=== PATIENT | female | born 1960 | race African-American/Black ===

== ENCOUNTER 2022-02-07 17:01 | Inpatient (IN) | payer OTHER ==
[2022-02-08] MEDS ORDERED: PREDNISONE 10 MG PO SCH (14:30)
[2022-02-08] MEDS: Gabapentin 300 MG CAP PO SCH ×2 (16:00→21:53)
[2022-02-08] MEDS ORDERED: Dextrose 50% Abboject 50 ML SYRINGE SLOW IVP PRN (16:22)
[2022-02-08] MEDS ORDERED: HumaLOG 300 UNITS/3 ML VIAL SC PRN (16:30)
[2022-02-08] MEDS ORDERED: Dextrose 5% in Water 1,000 ML IV PRN (16:30)
[2022-02-08] MEDS: Carvedilol 6.25 MG TAB PO SCH (17:34)
[2022-02-08] MEDS: Oxybutynin 5 MG TAB PO SCH (21:54)
[2022-02-08] MEDS: Fluticasone Propionate Nasal Spray 16 gm Bottle NASAL SCH (21:54)
[2022-02-08] MEDS: Famotidine 20 MG TAB PO SCH (21:55)
[2022-02-08] MEDS: Apixaban 2.5 MG TAB PO SCH (21:55)
[2022-02-09 05:52] LABS: Anion Gap 18 mmol/L (10-20); BUN (Urea Nitrogen) 90 mg/dL (9.8-20.1); Calc. Creatinine Clearance 53 mL/min (70-130); Calcium 9.6 mg/dL (7.8-10.44); Carbon Dioxide 21 mmol/L (23-31); Chloride 110 mmol/L (98-107); Estimated GFR 20; Glucose 127 mg/dL (80-115); Potassium 4.8 mmol/L (3.5-5.1); Sodium 144 mmol/L (136-145)
[2022-02-09 06:20] LABS: Hemoglobin 12.8 g/dL (12.0-16.0); Large Platelets SLIGHT; Lymphocytes 3 % (21-51); MDiff Complete? YES; Macrocytosis SLIGHT = 6-15 cells (100X) (0-5/hpf); Mean Platelet Volume 12.1 fL (7.4-10.4); Monocytes 3 % (0-10); Neutrophil 94 % (42-75); Ovalocytes SLIGHT = 2-5 cells (100X) (0-1/hpf); Platelet Count 103 thou/uL (130-400); Platelet Morphology Comment Appears Decreased; RBC Distribution Width 16.5 % (11.5-14.5); Red Blood Cell (RBC) Count 4.14 mill/uL (4.20-5.40); Tear Drops SLIGHT = 2-5 cells (100X) (0-1/hpf); White Blood Cell (WBC) Count 11.9 thou/uL (4.8-10.8)
[2022-02-09] MEDS: Furosemide 40 MG TAB PO SCH (08:15)
[2022-02-09] MEDS: Escitalopram Oxalate 10 mg Tablet PO SCH (08:15)
[2022-02-09] MEDS: Apixaban 2.5 MG TAB PO SCH ×2 (08:16→20:39)
[2022-02-09] MEDS: Carvedilol 6.25 MG TAB PO SCH ×2 (08:16→17:03)
[2022-02-09] MEDS: predniSONE 20 MG TAB PO SCH (08:16)
[2022-02-09] MEDS: NIFEdipine XL 30 MG TAB PO SCH (08:16)
[2022-02-09] MEDS: Loratadine 10 MG TAB PO SCH (08:16)
[2022-02-09] MEDS: Gabapentin 300 MG CAP PO SCH ×3 (08:17→20:38)
[2022-02-09] MEDS: Fluticasone Propionate Nasal Spray 16 gm Bottle NASAL SCH ×2 (08:18→20:38)
[2022-02-09] MEDS: Oxybutynin 5 MG TAB PO SCH (20:39)
[2022-02-09] MEDS: Famotidine 20 MG TAB PO SCH (20:39)
[2022-02-10] MEDS: Carvedilol 6.25 MG TAB PO SCH (08:18)
[2022-02-10] MEDS: NIFEdipine XL 30 MG TAB PO SCH (08:19)
[2022-02-10] MEDS: Escitalopram Oxalate 10 mg Tablet PO SCH (08:19)
[2022-02-10] MEDS: predniSONE 20 MG TAB PO SCH (08:19)
[2022-02-10] MEDS: Gabapentin 300 MG CAP PO SCH ×3 (08:19→21:28)
[2022-02-10] MEDS: Loratadine 10 MG TAB PO SCH (08:20)
[2022-02-10] MEDS: Apixaban 2.5 MG TAB PO SCH ×2 (08:20→21:26)
[2022-02-10] MEDS: Fluticasone Propionate Nasal Spray 16 gm Bottle NASAL SCH ×2 (08:20→21:26)
[2022-02-10] MEDS: Furosemide 40 MG TAB PO SCH (08:20)
[2022-02-10] MEDS: Oxybutynin 5 MG TAB PO SCH (21:27)
[2022-02-10] MEDS: Famotidine 20 MG TAB PO SCH (21:28)
[2022-02-11 05:40] VITALS: BMI 69.0
[2022-02-11] MEDS: Carvedilol 6.25 MG TAB PO SCH ×3 (08:42→17:44)
[2022-02-11] MEDS: NIFEdipine XL 30 MG TAB PO SCH (09:03)
[2022-02-11] MEDS: Apixaban 2.5 MG TAB PO SCH ×2 (09:06→20:40)
[2022-02-11] MEDS: Gabapentin 300 MG CAP PO SCH ×3 (09:06→20:40)
[2022-02-11] MEDS: Loratadine 10 MG TAB PO SCH (09:07)
[2022-02-11] MEDS: Escitalopram Oxalate 10 mg Tablet PO SCH (09:07)
[2022-02-11] MEDS: Furosemide 40 MG TAB PO SCH (09:07)
[2022-02-11] MEDS: Fluticasone Propionate Nasal Spray 16 gm Bottle NASAL SCH ×2 (09:09→20:44)
[2022-02-11] MEDS: Oxybutynin 5 MG TAB PO SCH (20:40)
[2022-02-11] MEDS: Famotidine 20 MG TAB PO SCH (20:40)
[2022-02-12] MEDS: Loratadine 10 MG TAB PO SCH (09:00)
[2022-02-12] MEDS: Apixaban 2.5 MG TAB PO SCH ×2 (09:00→20:44)
[2022-02-12] MEDS: Escitalopram Oxalate 10 mg Tablet PO SCH (09:01)
[2022-02-12] MEDS: Gabapentin 300 MG CAP PO SCH ×3 (09:02→20:45)
[2022-02-12] MEDS: Furosemide 40 MG TAB PO SCH (09:02)
[2022-02-12] MEDS: Carvedilol 6.25 MG TAB PO SCH ×2 (09:08→17:58)
[2022-02-12] MEDS: Fluticasone Propionate Nasal Spray 16 gm Bottle NASAL SCH ×2 (09:09→20:45)
[2022-02-12] MEDS: NIFEdipine XL 30 MG TAB PO SCH (09:16)
[2022-02-12] MEDS: Acetaminophen 325 MG TAB PO PRN (09:19)
[2022-02-12] MEDS: Ondansetron ODT 4 MG TAB PO PRN (14:44)
[2022-02-12] MEDS: Senokot S 8.6-50 MG TAB PO PRN (18:03)
[2022-02-12] MEDS: Famotidine 20 MG TAB PO SCH (20:44)
[2022-02-12] MEDS: Oxybutynin 5 MG TAB PO SCH (20:45)
[2022-02-13] MEDS: Gabapentin 300 MG CAP PO SCH ×3 (08:45→21:53)
[2022-02-13] MEDS: Senokot S 8.6-50 MG TAB PO PRN (08:45)
[2022-02-13] MEDS: Loratadine 10 MG TAB PO SCH (08:46)
[2022-02-13] MEDS: Carvedilol 6.25 MG TAB PO SCH ×2 (08:46→17:44)
[2022-02-13] MEDS: Apixaban 2.5 MG TAB PO SCH ×2 (08:46→21:54)
[2022-02-13] MEDS: Escitalopram Oxalate 10 mg Tablet PO SCH (08:47)
[2022-02-13] MEDS: Furosemide 40 MG TAB PO SCH (08:47)
[2022-02-13] MEDS: NIFEdipine XL 30 MG TAB PO SCH (08:48)
[2022-02-13] MEDS: Fluticasone Propionate Nasal Spray 16 gm Bottle NASAL SCH ×2 (09:03→22:49)
[2022-02-13] MEDS: Ondansetron ODT 4 MG TAB PO PRN (13:26)
[2022-02-13] MEDS: Oxybutynin 5 MG TAB PO SCH (21:54)
[2022-02-13] MEDS: Famotidine 20 MG TAB PO SCH (21:54)
[2022-02-13] MEDS: Acetaminophen 325 MG TAB PO PRN (22:00)
[2022-02-14 05:51] LABS: #Basophils 0.1 thou/uL (0.0-0.2); #Eosinphils 0.2 thou/uL (0.0-0.7); #Lymphocytes 0.7 thou/uL (1.20-3.40); #Monocytes 0.8 thou/uL (0.11-0.59); #Neutrophils 9.7 thou/uL (1.40-6.50); %Basophils 0.6 % (0.0-1.0); %Eosinophils 1.6 % (0.0-10.0); %Lymphocytes 5.7 % (21.0-51.0); %Monocytes 7.3 % (0.0-10.0); %Neutrophils 84.8 % (42.0-75.0); Hemoglobin 12.7 g/dL (12.0-16.0); Mean Corpuscular HGB CONC 30.3 g/dL (32.0-36.0); Mean Corpuscular Hemoglobin 30.3 pg (27.0-31.0); Mean Corpuscular Volume 99.9 fL (78.0-98.0); Mean Platelet Volume 10.1 fL (7.4-10.4); Platelet Count 86 thou/uL (130-400); RBC Distribution Width 16.8 % (11.5-14.5); Red Blood Cell (RBC) Count 4.21 mill/uL (4.20-5.40); White Blood Cell (WBC) Count 11.4 thou/uL (4.8-10.8)
[2022-02-14 05:57] VITALS: TEMP 97.1
[2022-02-14 06:00] LABS: Anion Gap 15 mmol/L (10-20); BUN (Urea Nitrogen) 89 mg/dL (9.8-20.1); Calc. Creatinine Clearance 51 mL/min (70-130); Calcium 9.4 mg/dL (7.8-10.44); Carbon Dioxide 22 mmol/L (23-31); Chloride 112 mmol/L (98-107); Estimated GFR 19; Glucose 102 mg/dL (80-115); Potassium 5.3 mmol/L (3.5-5.1); Sodium 144 mmol/L (136-145)
[2022-02-14 07:29] LABS: Anisocytosis SLIGHT = 6-15 cells (100X) (0-5/hpf); MDiff Complete? YES; Platelet Morphology Comment Appears Decreased
[2022-02-14] MEDS: Gabapentin 300 MG CAP PO SCH (08:34)
[2022-02-14] MEDS: Escitalopram Oxalate 10 mg Tablet PO SCH (08:34)
[2022-02-14] MEDS: NIFEdipine XL 30 MG TAB PO SCH (08:34)
[2022-02-14] MEDS: Fluticasone Propionate Nasal Spray 16 gm Bottle NASAL SCH (08:39)
[2022-02-14] MEDS: Apixaban 2.5 MG TAB PO SCH (08:39)
[2022-02-14] MEDS: Carvedilol 6.25 MG TAB PO SCH (08:39)
[2022-02-14] MEDS: Furosemide 40 MG TAB PO SCH (08:39)
[2022-02-14] MEDS: Loratadine 10 MG TAB PO SCH (08:39)
[2022-02-14 08:42] VITALS: BP 117/77
[2022-02-14 11:22] LABS: Hemoglobin A1c 6.4 % (4.0-6.0)
[2022-02-14 13:06] LABS: #Basophils 0.1 thou/uL (0.0-0.2); #Eosinphils 0.2 thou/uL (0.0-0.7); #Lymphocytes 0.5 thou/uL (1.20-3.40); #Monocytes 0.8 thou/uL (0.11-0.59); %Eosinophils 1.7 % (0.0-10.0); %Lymphocytes 4.4 % (21.0-51.0); %Monocytes 7.3 % (0.0-10.0); %Neutrophils 85.7 % (42.0-75.0); Hemoglobin 12.2 g/dL (12.0-16.0); Mean Corpuscular HGB CONC 30.7 g/dL (32.0-36.0); Mean Corpuscular Hemoglobin 30.3 pg (27.0-31.0); Mean Corpuscular Volume 98.5 fL (78.0-98.0); Mean Platelet Volume 11.1 fL (7.4-10.4); Platelet Count 80 thou/uL (130-400); RBC Distribution Width 16.7 % (11.5-14.5); Red Blood Cell (RBC) Count 4.02 mill/uL (4.20-5.40); White Blood Cell (WBC) Count 11.6 thou/uL (4.8-10.8)
[2022-02-14 13:07] LABS: MDiff Complete? YES
[2022-02-14 13:25] LABS: ALT (SGPT) 44 U/L (8-55); AST (SGOT) 29 U/L (5-34); Albumin 2.9 g/dL (3.4-4.8); Alkaline Phosphatase 100 U/L (40-110); Anion Gap 16 mmol/L (10-20); BUN (Urea Nitrogen) 91 mg/dL (9.8-20.1); Bilirubin, Total 0.4 mg/dL (0.2-1.2); Calc. Creatinine Clearance 50 mL/min (70-130); Calcium 9.3 mg/dL (7.8-10.44); Carbon Dioxide 23 mmol/L (23-31); Chloride 110 mmol/L (98-107); Estimated GFR 19; Globulin 2.9 g/dL (2.4-3.5); Glucose 107 mg/dL (80-115); Potassium 5.2 mmol/L (3.5-5.1); Protein, Total 5.8 g/dL (5.8-8.1); Sodium 144 mmol/L (136-145)
[2022-02-14 13:33] LABS: CKMB 2.2 ng/mL (0-6.6)
== END 2022-02-14 14:10 | disposition short-term general hospital (02) | DRG 177 ==
LOC: BURMED 02-08 12:14
PROVIDERS: ADMIT Family Medicine; ATTEND Family Medicine
PROC: 8E0ZXY6 Isolation (ICD-10-PCS; principal; 2022-02-08)
PROC: 5A09357 Assistance with Respiratory Ventilation, Less than 24 Consecutive Hours, Continuous Positive Airway Pressure (ICD-10-PCS; 2022-02-11)
DX: U07.1 COVID-19 (principal); J12.82 Pneumonia due to coronavirus disease 2019; N18.4 Chronic kidney disease, stage 4 (severe); Z68.44 Body mass index [BMI] 60.0-69.9, adult; I48.91 Unspecified atrial fibrillation; J45.909 Unspecified asthma, uncomplicated; I50.9 Heart failure, unspecified; E66.01 Morbid (severe) obesity due to excess calories; K59.00 Constipation, unspecified
CPT/HCPCS: 36415; 36416; 71045; 80048; 82330; 82553; 82803; 83036; 83605; 83880; 84443; 84484; 85025; 85379; 87040; 94640; 94660; J1815; J2250; J7512; J7620; Q0162

== ENCOUNTER 2022-02-14 14:16 | Emergency (ER) | payer OTHER ==
[2022-02-14] MEDS ORDERED: Succinylcholine 200 MG/10 ml SYRINGE FS ONE (14:17)
[2022-02-14 15:38] LABS: Base Excess-Venous -6.1 mmol/L (-2.0 to 3.0); Bicarbonate (HCO3v) 23.9 mmol/L (22.0-28.0); CO2 Tension (PvCO2) 69.2 mmHg (42.0-51.0); Calcium, Ionized 1.28 mmol/L (1.15-1.33); Chloride 112 mmol/L (98-107); Hemoglobin - Calc 12.4 g/dL (12.0-16.0); Potassium 5.2 mmol/L (3.5-5.1); Sodium 141 mmol/L (138-145); vO2 Saturation-calc 87.7 % (60.0-85.0)
[2022-02-14 19:06] LABS: Base Excess-Venous -6.2 mmol/L (-2.0 to 3.0); Bicarbonate (HCO3v) 23.2 mmol/L (22.0-28.0); CO2 Tension (PvCO2) 63.7 mmHg (42.0-51.0); Calcium, Ionized 1.26 mmol/L (1.15-1.33); Chloride 112 mmol/L (98-107); Hemoglobin - Calc 12.6 g/dL (12.0-16.0); Potassium 5.3 mmol/L (3.5-5.1); Sodium 141 mmol/L (138-145); T. Carbon Dioxide 25.2 mmol/L (22.0-28.0); vO2 Saturation-calc 77.3 % (60.0-85.0)
[2022-02-14] MEDS ORDERED: Midazolam HCl 2 mg/2 ml Vial ONE ×2 (19:19→19:52)
[2022-02-14] MEDS ORDERED: Norepinephrine 4 MG/4 ML VIAL ONE (19:44)
[2022-02-14] MEDS ORDERED: Ketamine 50 MG/ML (10ML VIAL) ONE (20:09)
== END 2022-02-14 20:41 | disposition short-term general hospital (02) ==
LOC: BURERS 14:16
DX: J96.91 Respiratory failure, unspecified with hypoxia (principal); E87.2 Acidosis; R91.8 Other nonspecific abnormal finding of lung field; I12.0 Hypertensive chronic kidney disease with stage 5 chronic kidney disease or end stage renal disease; E11.22 Type 2 diabetes mellitus with diabetic chronic kidney disease; N18.6 End stage renal disease; I48.91 Unspecified atrial fibrillation; Z79.899 Other long term (current) drug therapy; Z79.82 Long term (current) use of aspirin
CPT/HCPCS: 71045; 82330; 82803; 83605; 87040; 94660; 36415-59; J2250

== ENCOUNTER 2022-02-28 13:19 | Inpatient (IN) | payer OTHER ==
[2022-02-28] MEDS ORDERED: Dextrose 50% Abboject 50 ML SYRINGE SLOW IVP PRN ×2 (20:07→20:59)
[2022-02-28] MEDS ORDERED: Loperamide HCl 2 MG CAP PO PRN (20:07)
[2022-02-28] MEDS ORDERED: Bisacodyl 10 MG SUPP PR PRN (20:10)
[2022-02-28] MEDS ORDERED: Bisacodyl 5 MG TAB PO PRN (20:10)
[2022-02-28] MEDS ORDERED: HumaLOG 300 UNITS/3 ML VIAL SC PRN ×2 (21:00)
[2022-02-28] MEDS ORDERED: Dextrose 5% in Water 1,000 ML IV PRN (21:00)
[2022-02-28] MEDS: Apixaban 2.5 MG TAB PO SCH (21:17)
[2022-02-28] MEDS: Metoprolol Tartrate 50 MG TAB PO SCH (21:18)
[2022-02-28] MEDS: Non-Formulary Item 1 EACH (Atorvastatin Calcium [Lipitor] 20 MG Tab) PO SCH (21:37)
[2022-02-28] MEDS: Acetaminophen 500 MG TAB PO PRN (22:32)
[2022-03-01] MEDS: rOPINIRole HCl 0.25 MG TAB PO SCH (09:28)
[2022-03-01] MEDS: Cholecalciferol 1,000 UNITS (25 MCG) TAB PO SCH (09:29)
[2022-03-01] MEDS: Apixaban 2.5 MG TAB PO SCH ×2 (09:29→21:04)
[2022-03-01] MEDS: Alogliptin 6.25 MG TAB PO SCH (09:29)
[2022-03-01] MEDS: Cyanocobalamin (Vitamin B-12) 1,000 MCG TAB PO SCH (09:29)
[2022-03-01] MEDS: Folic Acid 1 MG TAB PO SCH (09:29)
[2022-03-01] MEDS: Metoprolol Tartrate 50 MG TAB PO SCH ×2 (09:30→21:04)
[2022-03-01] MEDS: Acetaminophen 500 MG TAB PO PRN (21:04)
[2022-03-01] MEDS: Non-Formulary Item 1 EACH (Atorvastatin Calcium [Lipitor] 20 MG Tab) PO SCH (21:05)
[2022-03-02] MEDS: rOPINIRole HCl 0.25 MG TAB PO SCH (09:16)
[2022-03-02] MEDS: Cholecalciferol 1,000 UNITS (25 MCG) TAB PO SCH (09:16)
[2022-03-02] MEDS: Folic Acid 1 MG TAB PO SCH (09:16)
[2022-03-02] MEDS: Metoprolol Tartrate 50 MG TAB PO SCH ×2 (09:16→20:24)
[2022-03-02] MEDS: Alogliptin 6.25 MG TAB PO SCH (09:17)
[2022-03-02] MEDS: Cyanocobalamin (Vitamin B-12) 1,000 MCG TAB PO SCH (09:17)
[2022-03-02] MEDS: Apixaban 2.5 MG TAB PO SCH (09:17)
[2022-03-02] MEDS: Acetaminophen 500 MG TAB PO PRN (13:22)
[2022-03-02] MEDS: Atorvastatin Calcium 10 MG TAB PO SCH (20:24)
[2022-03-02] MEDS: Apixaban 5 MG TAB PO SCH (20:24)
[2022-03-03 05:08] LABS: Hemoglobin 9.5 g/dL (12.0-16.0); Platelet Count 99 thou/uL (130-400)
[2022-03-03] MEDS: Alogliptin 6.25 MG TAB PO SCH (08:53)
[2022-03-03] MEDS: Cyanocobalamin (Vitamin B-12) 1,000 MCG TAB PO SCH (08:53)
[2022-03-03] MEDS: Folic Acid 1 MG TAB PO SCH (08:53)
[2022-03-03] MEDS: Cholecalciferol 1,000 UNITS (25 MCG) TAB PO SCH (08:53)
[2022-03-03] MEDS: Metoprolol Tartrate 50 MG TAB PO SCH ×2 (08:53→21:02)
[2022-03-03] MEDS: Apixaban 5 MG TAB PO SCH ×2 (08:53→21:02)
[2022-03-03] MEDS: rOPINIRole HCl 0.25 MG TAB PO SCH (08:53)
[2022-03-03] MEDS: EPOETIN ALFA-EPBX (NON-ESRD) 10,000 UNIT/ML VIAL SC SCH (15:22)
[2022-03-03] MEDS: Acetaminophen 500 MG TAB PO PRN (18:37)
[2022-03-03] MEDS: Atorvastatin Calcium 10 MG TAB PO SCH (21:02)
[2022-03-04] MEDS: Acetaminophen 500 MG TAB PO PRN ×3 (08:54→23:03)
[2022-03-04] MEDS: rOPINIRole HCl 0.25 MG TAB PO SCH (08:55)
[2022-03-04] MEDS: Cholecalciferol 1,000 UNITS (25 MCG) TAB PO SCH (08:55)
[2022-03-04] MEDS: Metoprolol Tartrate 50 MG TAB PO SCH ×2 (08:55→20:33)
[2022-03-04] MEDS: Alogliptin 6.25 MG TAB PO SCH (08:56)
[2022-03-04] MEDS: Apixaban 5 MG TAB PO SCH ×2 (08:56→20:33)
[2022-03-04] MEDS: Cyanocobalamin (Vitamin B-12) 1,000 MCG TAB PO SCH (08:56)
[2022-03-04] MEDS: Folic Acid 1 MG TAB PO SCH (08:56)
[2022-03-04] MEDS: Atorvastatin Calcium 10 MG TAB PO SCH (20:33)
[2022-03-05] MEDS: Metoprolol Tartrate 50 MG TAB PO SCH ×2 (08:40→21:56)
[2022-03-05] MEDS: rOPINIRole HCl 0.25 MG TAB PO SCH (08:40)
[2022-03-05] MEDS: Apixaban 5 MG TAB PO SCH ×2 (08:41→21:56)
[2022-03-05] MEDS: Cyanocobalamin (Vitamin B-12) 1,000 MCG TAB PO SCH (08:41)
[2022-03-05] MEDS: Folic Acid 1 MG TAB PO SCH (08:41)
[2022-03-05] MEDS: Cholecalciferol 1,000 UNITS (25 MCG) TAB PO SCH (08:41)
[2022-03-05] MEDS: Alogliptin 6.25 MG TAB PO SCH (08:41)
[2022-03-05] MEDS: Acetaminophen 500 MG TAB PO PRN ×3 (10:12→21:56)
[2022-03-05] MEDS ORDERED: Famotidine 20 MG TAB PO SCH (14:45)
[2022-03-05] MEDS: Atorvastatin Calcium 10 MG TAB PO SCH (21:55)
[2022-03-06] MEDS: rOPINIRole HCl 0.25 MG TAB PO SCH (10:08)
[2022-03-06] MEDS: Alogliptin 6.25 MG TAB PO SCH (10:09)
[2022-03-06] MEDS: Cyanocobalamin (Vitamin B-12) 1,000 MCG TAB PO SCH (10:10)
[2022-03-06] MEDS: Metoprolol Tartrate 50 MG TAB PO SCH ×2 (10:10→21:15)
[2022-03-06] MEDS: Famotidine 20 MG TAB PO SCH (10:10)
[2022-03-06] MEDS: Folic Acid 1 MG TAB PO SCH (10:11)
[2022-03-06] MEDS: Apixaban 5 MG TAB PO SCH ×2 (10:11→21:15)
[2022-03-06] MEDS: Cholecalciferol 1,000 UNITS (25 MCG) TAB PO SCH (10:11)
[2022-03-06] MEDS: Atorvastatin Calcium 10 MG TAB PO SCH (21:15)
[2022-03-07] MEDS: rOPINIRole HCl 0.25 MG TAB PO SCH (08:45)
[2022-03-07] MEDS: Folic Acid 1 MG TAB PO SCH (08:45)
[2022-03-07] MEDS: Metoprolol Tartrate 50 MG TAB PO SCH ×2 (08:45→22:26)
[2022-03-07] MEDS: Alogliptin 6.25 MG TAB PO SCH (08:45)
[2022-03-07] MEDS: Cyanocobalamin (Vitamin B-12) 1,000 MCG TAB PO SCH (08:45)
[2022-03-07] MEDS: Famotidine 20 MG TAB PO SCH (08:45)
[2022-03-07] MEDS: Apixaban 5 MG TAB PO SCH ×2 (08:46→22:26)
[2022-03-07] MEDS: Cholecalciferol 1,000 UNITS (25 MCG) TAB PO SCH (08:46)
[2022-03-07] MEDS: Atorvastatin Calcium 10 MG TAB PO SCH (22:26)
[2022-03-07] MEDS: Acetaminophen 500 MG TAB PO PRN (22:57)
[2022-03-08] MEDS: Alogliptin 6.25 MG TAB PO SCH (08:56)
[2022-03-08] MEDS: Cholecalciferol 1,000 UNITS (25 MCG) TAB PO SCH (08:56)
[2022-03-08] MEDS: rOPINIRole HCl 0.25 MG TAB PO SCH (08:56)
[2022-03-08] MEDS: Metoprolol Tartrate 50 MG TAB PO SCH ×2 (08:56→21:44)
[2022-03-08] MEDS: Apixaban 5 MG TAB PO SCH ×2 (08:56→21:44)
[2022-03-08] MEDS: Famotidine 20 MG TAB PO SCH (08:56)
[2022-03-08] MEDS: Acetaminophen 500 MG TAB PO PRN (08:56)
[2022-03-08] MEDS: Cyanocobalamin (Vitamin B-12) 1,000 MCG TAB PO SCH (08:57)
[2022-03-08] MEDS: Folic Acid 1 MG TAB PO SCH (08:57)
[2022-03-08] MEDS ORDERED: Ondansetron ODT 4 MG TAB PO PRN (18:59)
[2022-03-08] MEDS: Atorvastatin Calcium 10 MG TAB PO SCH (21:44)
[2022-03-08] MEDS: Gabapentin 100 MG CAP PO SCH (21:45)
[2022-03-09] MEDS: Famotidine 20 MG TAB PO SCH (10:11)
[2022-03-09] MEDS: Gabapentin 100 MG CAP PO SCH ×2 (10:12→21:04)
[2022-03-09] MEDS: Acetaminophen 500 MG TAB PO PRN ×2 (10:13→21:08)
[2022-03-09] MEDS: Cholecalciferol 1,000 UNITS (25 MCG) TAB PO SCH (10:13)
[2022-03-09] MEDS: rOPINIRole HCl 0.25 MG TAB PO SCH (10:14)
[2022-03-09] MEDS: Alogliptin 6.25 MG TAB PO SCH (10:14)
[2022-03-09] MEDS: Metoprolol Tartrate 50 MG TAB PO SCH ×2 (10:14→21:04)
[2022-03-09] MEDS: Apixaban 5 MG TAB PO SCH ×2 (10:14→21:04)
[2022-03-09] MEDS: Folic Acid 1 MG TAB PO SCH (10:15)
[2022-03-09] MEDS: Cyanocobalamin (Vitamin B-12) 1,000 MCG TAB PO SCH (10:15)
[2022-03-09] MEDS: Atorvastatin Calcium 10 MG TAB PO SCH (21:04)
[2022-03-10] MEDS: Alogliptin 6.25 MG TAB PO SCH (09:15)
[2022-03-10] MEDS: rOPINIRole HCl 0.25 MG TAB PO SCH (09:15)
[2022-03-10] MEDS: Metoprolol Tartrate 50 MG TAB PO SCH ×2 (09:15→21:37)
[2022-03-10] MEDS: Cholecalciferol 1,000 UNITS (25 MCG) TAB PO SCH (09:15)
[2022-03-10] MEDS: Apixaban 5 MG TAB PO SCH ×2 (09:15→21:36)
[2022-03-10] MEDS: Famotidine 20 MG TAB PO SCH (09:15)
[2022-03-10] MEDS: Acetaminophen 500 MG TAB PO PRN ×2 (09:15→21:37)
[2022-03-10] MEDS: Cyanocobalamin (Vitamin B-12) 1,000 MCG TAB PO SCH (09:16)
[2022-03-10] MEDS: Folic Acid 1 MG TAB PO SCH (09:17)
[2022-03-10] MEDS: Gabapentin 100 MG CAP PO SCH ×2 (09:17→21:36)
[2022-03-10] MEDS: EPOETIN ALFA-EPBX (NON-ESRD) 10,000 UNIT/ML VIAL SC SCH (15:09)
[2022-03-10] MEDS: Atorvastatin Calcium 10 MG TAB PO SCH (21:38)
[2022-03-11] MEDS: Alogliptin 6.25 MG TAB PO SCH (10:35)
[2022-03-11] MEDS: rOPINIRole HCl 0.25 MG TAB PO SCH (10:35)
[2022-03-11] MEDS: Famotidine 20 MG TAB PO SCH (10:35)
[2022-03-11] MEDS: Folic Acid 1 MG TAB PO SCH (10:36)
[2022-03-11] MEDS: Cyanocobalamin (Vitamin B-12) 1,000 MCG TAB PO SCH (10:36)
[2022-03-11] MEDS: Apixaban 5 MG TAB PO SCH ×2 (10:36→21:36)
[2022-03-11] MEDS: Cholecalciferol 1,000 UNITS (25 MCG) TAB PO SCH (10:36)
[2022-03-11] MEDS: Gabapentin 100 MG CAP PO SCH ×2 (10:37→21:36)
[2022-03-11] MEDS: Acetaminophen 500 MG TAB PO PRN ×2 (10:37→21:36)
[2022-03-11] MEDS: Metoprolol Tartrate 50 MG TAB PO SCH ×2 (10:37→21:38)
[2022-03-11] MEDS: Atorvastatin Calcium 10 MG TAB PO SCH (21:36)
[2022-03-12] MEDS: rOPINIRole HCl 0.25 MG TAB PO SCH (08:41)
[2022-03-12] MEDS: Apixaban 5 MG TAB PO SCH ×2 (08:42→21:04)
[2022-03-12] MEDS: Folic Acid 1 MG TAB PO SCH (08:42)
[2022-03-12] MEDS: Alogliptin 6.25 MG TAB PO SCH (08:42)
[2022-03-12] MEDS: Metoprolol Tartrate 50 MG TAB PO SCH ×2 (08:42→21:04)
[2022-03-12] MEDS: Cyanocobalamin (Vitamin B-12) 1,000 MCG TAB PO SCH (08:42)
[2022-03-12] MEDS: Gabapentin 100 MG CAP PO SCH ×2 (08:42→21:05)
[2022-03-12] MEDS: Famotidine 20 MG TAB PO SCH (08:43)
[2022-03-12] MEDS: Cholecalciferol 1,000 UNITS (25 MCG) TAB PO SCH (08:43)
[2022-03-12] MEDS: Acetaminophen 500 MG TAB PO PRN ×2 (08:48→21:04)
[2022-03-12] MEDS: Atorvastatin Calcium 10 MG TAB PO SCH (21:04)
[2022-03-13 05:27] LABS: Hemoglobin 9.1 g/dL (12.0-16.0); Platelet Count 195 thou/uL (130-400)
[2022-03-13] MEDS: Metoprolol Tartrate 50 MG TAB PO SCH ×2 (09:58→21:26)
[2022-03-13] MEDS: rOPINIRole HCl 0.25 MG TAB PO SCH (09:59)
[2022-03-13] MEDS: Gabapentin 100 MG CAP PO SCH ×2 (09:59→21:25)
[2022-03-13] MEDS: Alogliptin 6.25 MG TAB PO SCH (09:59)
[2022-03-13] MEDS: Folic Acid 1 MG TAB PO SCH (09:59)
[2022-03-13] MEDS: Famotidine 20 MG TAB PO SCH (10:00)
[2022-03-13] MEDS: Apixaban 5 MG TAB PO SCH ×2 (10:01→21:26)
[2022-03-13] MEDS: Cyanocobalamin (Vitamin B-12) 1,000 MCG TAB PO SCH (10:02)
[2022-03-13] MEDS: Cholecalciferol 1,000 UNITS (25 MCG) TAB PO SCH (10:02)
[2022-03-13] MEDS: Acetaminophen 500 MG TAB PO PRN ×2 (10:04→21:26)
[2022-03-13] MEDS ORDERED: Ibuprofen 600 MG TAB PO SCH (14:45)
[2022-03-13] MEDS: Atorvastatin Calcium 10 MG TAB PO SCH (21:25)
[2022-03-14] MEDS: rOPINIRole HCl 0.25 MG TAB PO SCH (09:39)
[2022-03-14] MEDS: Cyanocobalamin (Vitamin B-12) 1,000 MCG TAB PO SCH (09:40)
[2022-03-14] MEDS: Cholecalciferol 1,000 UNITS (25 MCG) TAB PO SCH (09:40)
[2022-03-14] MEDS: Alogliptin 6.25 MG TAB PO SCH (09:40)
[2022-03-14] MEDS: Metoprolol Tartrate 50 MG TAB PO SCH ×2 (09:41→20:33)
[2022-03-14] MEDS: Folic Acid 1 MG TAB PO SCH (09:41)
[2022-03-14] MEDS: Famotidine 20 MG TAB PO SCH (09:41)
[2022-03-14] MEDS: Apixaban 5 MG TAB PO SCH ×2 (09:41→20:34)
[2022-03-14] MEDS: Gabapentin 100 MG CAP PO SCH ×2 (09:44→20:34)
[2022-03-14 11:00] VITALS: BMI 65.0
[2022-03-14] MEDS: Atorvastatin Calcium 10 MG TAB PO SCH (20:33)
[2022-03-14] MEDS: Ibuprofen 600 MG TAB PO SCH (20:37)
[2022-03-15] MEDS: Alogliptin 6.25 MG TAB PO SCH (09:46)
[2022-03-15] MEDS: Metoprolol Tartrate 50 MG TAB PO SCH ×2 (09:46→20:59)
[2022-03-15] MEDS: rOPINIRole HCl 0.25 MG TAB PO SCH (09:46)
[2022-03-15] MEDS: Gabapentin 100 MG CAP PO SCH ×2 (09:47→20:58)
[2022-03-15] MEDS: Cyanocobalamin (Vitamin B-12) 1,000 MCG TAB PO SCH (09:48)
[2022-03-15] MEDS: Folic Acid 1 MG TAB PO SCH (09:48)
[2022-03-15] MEDS: Apixaban 5 MG TAB PO SCH ×2 (09:48→20:59)
[2022-03-15] MEDS: Cholecalciferol 1,000 UNITS (25 MCG) TAB PO SCH (09:48)
[2022-03-15] MEDS: Famotidine 20 MG TAB PO SCH (09:50)
[2022-03-15] MEDS: Ibuprofen 600 MG TAB PO SCH ×2 (09:50→20:59)
[2022-03-15] MEDS: Acetaminophen 500 MG TAB PO PRN (15:27)
[2022-03-15] MEDS: Atorvastatin Calcium 10 MG TAB PO SCH (20:58)
[2022-03-16] MEDS: Acetaminophen 500 MG TAB PO PRN (01:18)
[2022-03-16] MEDS: Alogliptin 6.25 MG TAB PO SCH (09:39)
[2022-03-16] MEDS: Famotidine 20 MG TAB PO SCH (09:39)
[2022-03-16] MEDS: rOPINIRole HCl 0.25 MG TAB PO SCH (09:39)
[2022-03-16] MEDS: Ibuprofen 600 MG TAB PO SCH ×2 (09:40→21:42)
[2022-03-16] MEDS: Apixaban 5 MG TAB PO SCH ×2 (09:40→21:41)
[2022-03-16] MEDS: Folic Acid 1 MG TAB PO SCH (09:41)
[2022-03-16] MEDS: Metoprolol Tartrate 50 MG TAB PO SCH ×2 (09:41→21:41)
[2022-03-16] MEDS: Cholecalciferol 1,000 UNITS (25 MCG) TAB PO SCH (09:41)
[2022-03-16] MEDS: Cyanocobalamin (Vitamin B-12) 1,000 MCG TAB PO SCH (09:41)
[2022-03-16] MEDS: Gabapentin 100 MG CAP PO SCH ×2 (09:49→21:40)
[2022-03-16] MEDS: Atorvastatin Calcium 10 MG TAB PO SCH (21:41)
[2022-03-17] MEDS: Alogliptin 6.25 MG TAB PO SCH (09:37)
[2022-03-17] MEDS: Ibuprofen 600 MG TAB PO SCH ×2 (09:38→20:38)
[2022-03-17] MEDS: rOPINIRole HCl 0.25 MG TAB PO SCH (09:38)
[2022-03-17] MEDS: Folic Acid 1 MG TAB PO SCH (09:39)
[2022-03-17] MEDS: Cyanocobalamin (Vitamin B-12) 1,000 MCG TAB PO SCH (09:39)
[2022-03-17] MEDS: Gabapentin 100 MG CAP PO SCH ×2 (09:39→20:39)
[2022-03-17] MEDS: Apixaban 5 MG TAB PO SCH ×2 (09:40→20:39)
[2022-03-17] MEDS: Famotidine 20 MG TAB PO SCH (09:40)
[2022-03-17] MEDS: Metoprolol Tartrate 50 MG TAB PO SCH ×2 (09:40→21:52)
[2022-03-17] MEDS: Cholecalciferol 1,000 UNITS (25 MCG) TAB PO SCH (09:40)
[2022-03-17] MEDS: EPOETIN ALFA-EPBX (NON-ESRD) 10,000 UNIT/ML VIAL SC SCH (15:03)
[2022-03-17] MEDS: Atorvastatin Calcium 10 MG TAB PO SCH (20:38)
[2022-03-18] MEDS: Acetaminophen 500 MG TAB PO PRN ×2 (07:23→16:13)
[2022-03-18] MEDS: Alogliptin 6.25 MG TAB PO SCH (09:38)
[2022-03-18] MEDS: Famotidine 20 MG TAB PO SCH (09:38)
[2022-03-18] MEDS: rOPINIRole HCl 0.25 MG TAB PO SCH (09:39)
[2022-03-18] MEDS: Folic Acid 1 MG TAB PO SCH (09:39)
[2022-03-18] MEDS: Cyanocobalamin (Vitamin B-12) 1,000 MCG TAB PO SCH (09:40)
[2022-03-18] MEDS: Gabapentin 100 MG CAP PO SCH ×2 (09:40→21:29)
[2022-03-18] MEDS: Cholecalciferol 1,000 UNITS (25 MCG) TAB PO SCH (09:40)
[2022-03-18] MEDS: Ibuprofen 600 MG TAB PO SCH ×2 (09:41→21:30)
[2022-03-18] MEDS: Apixaban 5 MG TAB PO SCH ×2 (09:41→21:30)
[2022-03-18] MEDS: Metoprolol Tartrate 50 MG TAB PO SCH ×2 (09:46→21:30)
[2022-03-18] MEDS: Atorvastatin Calcium 10 MG TAB PO SCH (21:30)
[2022-03-19 06:16] VITALS: BP 95/60; TEMP 97.8
[2022-03-19] MEDS: rOPINIRole HCl 0.25 MG TAB PO SCH (08:50)
[2022-03-19] MEDS: Gabapentin 100 MG CAP PO SCH (08:51)
[2022-03-19] MEDS: Cholecalciferol 1,000 UNITS (25 MCG) TAB PO SCH (08:52)
[2022-03-19] MEDS: Famotidine 20 MG TAB PO SCH (08:52)
[2022-03-19] MEDS: Cyanocobalamin (Vitamin B-12) 1,000 MCG TAB PO SCH (08:52)
[2022-03-19] MEDS: Alogliptin 6.25 MG TAB PO SCH (08:53)
[2022-03-19] MEDS: Folic Acid 1 MG TAB PO SCH (08:53)
[2022-03-19] MEDS: Apixaban 5 MG TAB PO SCH (08:54)
[2022-03-19] MEDS: Ibuprofen 600 MG TAB PO SCH (08:54)
[2022-03-19] MEDS: Metoprolol Tartrate 50 MG TAB PO SCH (08:54)
== END 2022-03-19 16:45 | disposition home health service (06) | DRG 948 ==
LOC: BURMED 18:40
PROVIDERS: ADMIT Family Medicine; ATTEND Family Medicine
PROC: 5A09357 Assistance with Respiratory Ventilation, Less than 24 Consecutive Hours, Continuous Positive Airway Pressure (ICD-10-PCS; principal; 2022-03-18)
DX: R53.1 Weakness (principal); N18.4 Chronic kidney disease, stage 4 (severe); I50.32 Chronic diastolic (congestive) heart failure; I13.0 Hypertensive heart and chronic kidney disease with heart failure and stage 1 through stage 4 chronic kidney disease, or unspecified chronic kidney disease; E66.2 Morbid (severe) obesity with alveolar hypoventilation; Z68.44 Body mass index [BMI] 60.0-69.9, adult; G47.33 Obstructive sleep apnea (adult) (pediatric); E78.5 Hyperlipidemia, unspecified; E11.22 Type 2 diabetes mellitus with diabetic chronic kidney disease; J45.909 Unspecified asthma, uncomplicated; D69.6 Thrombocytopenia, unspecified; F32.A Depression, unspecified; I48.91 Unspecified atrial fibrillation; Z90.49 Acquired absence of other specified parts of digestive tract; Z90.710 Acquired absence of both cervix and uterus; Z98.890 Other specified postprocedural states; Z88.8 Allergy status to other drugs, medicaments and biological substances; Z79.01 Long term (current) use of anticoagulants; Z79.899 Other long term (current) drug therapy
CPT/HCPCS: 36415; 36416; 82565; 85014; 85018; 85049; 94640; J7620; Q0162; Q5106